=== PATIENT | male | born 1965 | race Caucasian/White ===

== ENCOUNTER 2023-11-20 06:20 | Outpatient (CLI) | payer OTHER, SELFPAY ==
--- NOTE | 2023-11-20 07:54 | W.ANESCHARGE ---
Anesthesia Charges Start Date/Time Anesthesia Start Date: 11/20/23 Anesthesia Start Time: 07:23 Stop Date/Time Anesthesia Stop Date: 11/20/23 Anesthesia Stop Time: 07:50
--- NOTE | 2023-11-20 08:22 | W.ANESCHARGE ---
Anesthesia Charges Start Date/Time Anesthesia Start Date: 11/20/23 Anesthesia Start Time: 07:23 Stop Date/Time Anesthesia Stop Date: 11/20/23 Anesthesia Stop Time: 07:50
== END 2023-11-20 06:21 | disposition home or self-care (01) ==
LOC: OP CLINIC 06:22
PROVIDERS: PCP Family Medicine; Visit Provider Internal Medicine
DX: Z12.11 Encounter for screening for malignant neoplasm of colon (principal); Z86.010 Personal history of colon polyps; D12.5 Benign neoplasm of sigmoid colon; K57.30 Diverticulosis of large intestine without perforation or abscess without bleeding
CPT/HCPCS: 00811; 00812; 45380; 88305; J2704